=== PATIENT | male | born 1945 | race Caucasian/White ===

== ENCOUNTER → 2017-06-13 | Outpatient (CLI) | payer BC ==
[2017-06-13 07:59] LABS: ANION GAP 14 (5-19); BLOOD UREA NITROGEN 7 mg/dL (7-20); CALCIUM 9.9 mg/dL (8.4-10.2); CARBON DIOXIDE 25 mmol/L (22-30); CHLORIDE 98 mmol/L (98-107); CHOLESTEROL 160.66 mg/dL (0-200); GLUCOSE 94 mg/dL (75-110); POTASSIUM 4.4 mmol/L (3.6-5.0); SODIUM 136.6 mmol/L (137-145); TRIGLYCERIDES 109 mg/dL (<150)
[2017-06-13 08:09] LABS: DIRECT LDL 77 mg/dL (<100)
[2017-06-14 08:39] LABS: HEPATITIS C VIRUS AB <0.1 s/co ratio (0.0-0.9)
== END ==
LOC: LAB 07:23
PROVIDERS: ATTEND Family Medicine
DX: E78.5 Hyperlipidemia, unspecified (principal); I10 Essential (primary) hypertension; Z79.899 Other long term (current) drug therapy; Z12.5 Encounter for screening for malignant neoplasm of prostate; Z11.59 Encounter for screening for other viral diseases
CPT/HCPCS: 36415; 80048; 80061; 83036; 84153; 84443; 86803; 86804

== ENCOUNTER → 2017-09-10 | Day surgery (SDC) | payer BC ==
[~2017-09-10] MED LIST: CHONDR SU A NA/HYALUR INTRAOC KIT (SURGICARE) ONE; EPINEPHRINE INJ/PF 1 MG/1 ML AMPULE ONE; FENTANYL CITRATE INJ/PF 100 MCG/2 ML AMPUL ONE; KETOROLAC TROMETHAMINE 0.45% 4 DROP/0.4 ML DROPERETTE OS PRN; LIDOCAINE 1% INJ-PF (10 MG/ML) 30 ML SDV ONE; MIDAZOLAM 2 MG/2 ML INJ ONE; TOBRAMYCIN SULFATE/DEXAMETH OPH OINTMENT 3.5 GM ONE
[2017-09-10] MEDS: TROPICAMIDE 1% OPH SOLN 3 ML OS PRN ×3 (09:26→09:45)
[2017-09-10] MEDS: BESIFLOXACIN HCL 0.6% OPH SUSP 5 ML BOTTLE OS PRN ×3 (09:26→10:30)
[2017-09-10] MEDS: CYCLOPENTOLATE 0.2%/PHENYLEPHRINE 1% OPH SOLN 2 ML OS PRN ×3 (09:26→09:45)
[2017-09-10] MEDS: TETRACAINE HCL 0.5% OPH SOLN 0.6 ML DROPERETTE OS PRN ×3 (09:26→10:04)
== END ==
LOC: SC 08:39
PROVIDERS: ATTEND Ophthalmology
DX: H25.12 Age-related nuclear cataract, left eye (principal); F17.210 Nicotine dependence, cigarettes, uncomplicated; J44.9 Chronic obstructive pulmonary disease, unspecified; I10 Essential (primary) hypertension; Z79.51 Long term (current) use of inhaled steroids; Z79.1 Long term (current) use of non-steroidal anti-inflammatories (NSAID); Z79.899 Other long term (current) drug therapy; Z85.038 Personal history of other malignant neoplasm of large intestine; Z85.828 Personal history of other malignant neoplasm of skin
CPT/HCPCS: 66984; V2630; J2250; J3490 ×3; J0171; J3010; 142

== ENCOUNTER 2017-09-24 06:57 | Day surgery (SDC) | payer BC ==
[~2017-09-24 06:57] MED LIST changes: -CHONDR SU A NA/HYALUR INTRAOC KIT (SURGICARE) ONE; -EPINEPHRINE INJ/PF 1 MG/1 ML AMPULE ONE; -FENTANYL CITRATE INJ/PF 100 MCG/2 ML AMPUL ONE; +KETOROLAC TROMETHAMINE 0.45% 4 DROP/0.4 ML DROPERETTE OD PRN; -KETOROLAC TROMETHAMINE 0.45% 4 DROP/0.4 ML DROPERETTE OS PRN; -LIDOCAINE 1% INJ-PF (10 MG/ML) 30 ML SDV ONE; -MIDAZOLAM 2 MG/2 ML INJ ONE; -TOBRAMYCIN SULFATE/DEXAMETH OPH OINTMENT 3.5 GM ONE
[2017-09-24] MEDS ORDERED: EPINEPHRINE INJ/PF 1 MG/1 ML AMPULE ONE (07:13)
[2017-09-24] MEDS ORDERED: CHONDR SU A NA/HYALUR INTRAOC KIT (SURGICARE) ONE (07:13)
[2017-09-24] MEDS ORDERED: LIDOCAINE 1% INJ-PF (10 MG/ML) 30 ML SDV ONE (07:13)
[2017-09-24] MEDS: TETRACAINE HCL 0.5% OPH SOLN 0.6 ML DROPERETTE OD PRN ×3 (07:55→08:19)
[2017-09-24] MEDS: TROPICAMIDE 1% OPH SOLN 3 ML OD PRN ×3 (07:55→08:15)
[2017-09-24] MEDS: CYCLOPENTOLATE 0.2%/PHENYLEPHRINE 1% OPH SOLN 2 ML OD PRN ×3 (07:55→08:15)
[2017-09-24] MEDS: BESIFLOXACIN HCL 0.6% OPH SUSP 5 ML BOTTLE OD PRN ×4 (07:55→08:41)
[2017-09-24] MEDS ORDERED: MIDAZOLAM 2 MG/2 ML INJ ONE (07:59)
[2017-09-24] MEDS ORDERED: LIDOCAINE 1%/PHENYLEPHRINE 1.5% 1 ML VIAL ONE (08:01)
[2017-09-24] MEDS: TOBRAMYCIN SULFATE/DEXAMETH OPH OINTMENT 3.5 GM ONE ×2 (08:41)
== END 2017-09-24 09:16 | disposition home or self-care (01) ==
LOC: SC 06:57
PROVIDERS: ATTEND Ophthalmology
DX: H25.11 Age-related nuclear cataract, right eye (principal); Z98.42 Cataract extraction status, left eye; J44.9 Chronic obstructive pulmonary disease, unspecified; I10 Essential (primary) hypertension; Z85.038 Personal history of other malignant neoplasm of large intestine; Z90.49 Acquired absence of other specified parts of digestive tract; Z79.51 Long term (current) use of inhaled steroids
CPT/HCPCS: 66984; V2632; J2250; J3490 ×2; J0171; J2370; 142

== ENCOUNTER → 2019-02-25 | Outpatient (CLI) | payer BC, MEDICARE ==
[2019-02-25 13:07] LABS: ANION GAP 17 (5-19); BLOOD UREA NITROGEN 22 mg/dL (7-20); CALCIUM 10.1 mg/dL (8.4-10.2); CARBON DIOXIDE 20 mmol/L (22-30); CHLORIDE 96 mmol/L (98-107); CHOLESTEROL 167.29 mg/dL (0-200); GLUCOSE 104 mg/dL (75-110); TRIGLYCERIDES 179 mg/dL (<150)
[2019-02-25 13:18] LABS: DIRECT LDL 102 mg/dL (<100)
[2019-02-25 13:43] LABS: VLDL CHOLESTEROL 35.8 mg/dL (10-31)
== END ==
LOC: LAB 12:10
PROVIDERS: ATTEND Family Medicine
DX: E78.5 Hyperlipidemia, unspecified (principal); I10 Essential (primary) hypertension; Z12.5 Encounter for screening for malignant neoplasm of prostate; Z79.899 Other long term (current) drug therapy
CPT/HCPCS: 36415; 84443; 80048; 83036; 80061; G0103

== ENCOUNTER 2019-04-26 10:17 | Inpatient (IN) | payer MEDICARE, BC ==
--- NOTE | 2019-04-26 11:03 | ER Document Report ---
ED General - General Chief Complaint: GI Bleeding Stated Complaint: NAUSEA,VOMITING Notes: 74-year-old male with long smoking history presents with weight loss and vomit ing blood. Start vomiting blood last night with right upper quadrant abdominal pain. Constant. No diarrhea. Patient is "hermit". Sister and she had to force him to come today. He is in the middle of getting a primary care established at the [facility]. 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 Denies a history of GI bleed or liver disease. TRAVEL OUTSIDE OF THE [place] IN LAST 30 DAYS: No - Related Data Allergies/Adverse Reactions: No Known Allergies Allergy (Unverified 09/24/17 08:03) Past Medical History - Social History Smoking Status: Current Every Day Smoker Smoking Education Provided: Yes - The patient ED visit today was directly related to their abuse of tobacco. Family History: None Patient has suicidal ideation: No Patient has homicidal ideation: No - Past Medical History Cardiac Medical History: Reports: Hx Hypertension - MEDICATED/STRESS TEST LAST YEAR-WNL Denies: Hx Heart Attack Pulmonary Medical History: Denies: Hx Asthma Neurological Medical History: Denies: Hx Cerebrovascular Accident, Hx Seizures GI Medical History: Denies: Hx Hepatitis, Hx Hiatal Hernia, Hx Ulcer Infectious Medical History: Denies: Hx Hepatitis Past Surgical History: Denies: Hx Open Heart Surgery, Hx Pacemaker Review of Systems - Review of Systems Notes: REVIEW OF SYSTEMS GEN: Weakness weight loss ENT: Denies sore throat, nasal discharge, ear pain EYES: Denies blurry vision, eye pain, discharge CV: Denies chest pain, palpitations, edema RESP: Chronic cough GI: Pain and hematemesis MSK: Denies joint pain/swelling, edema, SKIN: Denies rash, skin lesions LYMPH: Denies swollen glands/lymph nodes NEURO: Denies headache, focal weakness or numbness, dizziness PSYCH: Denies depression, suicidal or homicidal ideation PHYSICAL EXAMINATION General: extremely frail and wasted thin, baggy jeans as if he is lost weight Head: PERRLA wasting. Edentulous. Atraumatic, normocephalic ENT: Mouth normal, oropharynx moist, no exudates or tonsillar enlargement Eyes: Conjunctiva normal, pupils equal, lids normal Neck: No JVD, supple, no guarding CVS: Normal rate, regular rhythm, no murmurs Resp: No resp distress, equal and normal breath sounds bilaterally GI: Old incision. Scaphoid abdomen. Right upper quadrant tenderness present. Ext: No deformities, no edema, normal range of motion in upper and lower ext Back: No CVA or midline TTP Skin: No rash, warm Lymphatic: No lymphadeopathy noted Neuro: Awake, alert. Face symmetric. GCS 15. Physical Exam - Vital signs Vitals: Resp Pulse Ox 16 97 04/26/19 10:31 04/26/19 10:31 Course - Re-evaluation Re-evalutation: 04/26/19 12:56 Presents with hematemesis. He is very thin and has had intestinal surgery before and I am concerned about cancer in bowel obstruction along with upper GI bleed. Ordered labs and type and screen. Made n.p.o. Given pain medicine. Ordered CT chest abdomen pelvis given his smoking history. Received call from radiology that patient has a high-grade small bowel obstruction with up to seven 8 mm dilated loops fluid-filled no clear transition point. I am going to order NG tube, n.p.o. and fluids. Call Dr. Mckay left message with [email or web address] tech at [phone] so that he could see and admit the patient. Awaiting results of chest CT. 04/26/19 13:31 CT chest with emphysema but no acute findings. Will be admitted to surgical list. - Vital Signs Vital signs: Temp Pulse Resp BP Pulse Ox 98.1 F 102 H 18 154/87 H 96 04/26/19 10:37 04/26/19 10:37 04/26/19 11:01 04/26/19 11:01 04/26/19 11:01 - Laboratory Result Diagrams: 04/26/19 10:26 04/26/19 10:26 Laboratory results interpreted by me: 04/26/19 04/26/19 10:26 10:26 WBC 12.1 H RDW 15.4 H Seg Neuts % (Manual) 94 H Lymphocytes % (Manual) 4 L Monocytes % (Manual) 1 L Abs Neuts (Manual) 11.4 H Carbon Dioxide 20 L BUN 23 H Glucose 168 H - Diagnostic Test Radiology reviewed: Image reviewed, Reports reviewed Discharge - Discharge Clinical Impression: Small bowel obstruction Condition: Fair Disposition: ADMITTED INPATIENT Admitting Provider: Surgicalist Unit Admitted: Surgical Floor
[2019-04-26 11:19] LABS: INTERNATIONAL RATION (INR) 1.08; PROTHROMBIN TIME 14.1 SEC (11.4-15.4)
[2019-04-26 11:21] LABS: PARTIAL THROMBOPLASTIN TIME 26.7 SEC (23.5-35.8)
[2019-04-26 11:27] LABS: HEMATOCRIT 46.2 % (37.9-51.0); HEMOGLOBIN 15.7 g/dL (13.5-17.0); MEAN CORPUSCULAR HEMOGLOBIN 32.5 pg (27.0-33.4); MEAN CORPUSCULAR VOLUME 96 fl (80-97); PLATELET COUNT 288 10^3/uL (150-450); RED BLOOD COUNT 4.84 10^6/uL (4.35-5.55); RED CELL DISTRIBUTION WIDTH 15.4 % (11.5-14.0); WHITE BLOOD COUNT 12.1 10^3/uL (4.0-10.5)
[2019-04-26 11:37] LABS: ALBUMIN 4.5 g/dL (3.5-5.0); ALKALINE PHOSPHATASE 73 U/L (38-126); ANION GAP 16 (5-19); ASPARTATE AMINO TRANSFERASE 25 U/L (17-59); BILIRUBIN,DIRECT 0.4 mg/dL (0.0-0.4); BILIRUBIN,TOTAL 0.8 mg/dL (0.2-1.3); BLOOD UREA NITROGEN 23 mg/dL (7-20); CALCIUM 10.2 mg/dL (8.4-10.2); CARBON DIOXIDE 20 mmol/L (22-30); CHLORIDE 106 mmol/L (98-107); GLUCOSE 168 mg/dL (75-110); POTASSIUM 4.3 mmol/L (3.6-5.0); TOTAL PROTEIN 7.5 g/dL (6.3-8.2)
[2019-04-26] MEDS ORDERED: FENTANYL CITRATE INJ/PF 100 MCG/2 ML AMPUL IV ONE (11:46)
[2019-04-26 11:53] LABS: ABSOLUTE LYMPHOCYTES# (MANUAL) 0.6 10^3/uL (0.5-4.7); ABSOLUTE MONOCYTES # (MANUAL) 0.1 10^3/uL (0.1-1.4); ANISOCYTOSIS SLIGHT; BASOPHILS % (MANUAL) 0 % (0-2); BURR CELLS SLIGHT; EOSINOPHILS % (MANUAL) 0 % (0-6); LYMPHOCYTES % (MANUAL) 4 % (13-45); MONOCYTES % (MANUAL) 1 % (3-13); OVALOCYTES 1+; POIKILOCYTOSIS 1+; SEGMENTED NEUTROPHILS % (MAN) 94 % (42-78); TEAR DROP CELLS SLIGHT; TOTAL CELLS COUNTED 100
[2019-04-26 11:54] LABS: PLATELET COMMENT ADEQUATE; SCHISTOCYTES SLIGHT
--- NOTE | 2019-04-26 12:54 | RADIOLOGY REPORT (SQ) ---
EXAM DESCRIPTION: CT ABD/PELVIS WITH IV ONLY COMPLETED DATE/TIME: 04/26/2019 12:32 pm REASON FOR STUDY: GI bleed COMPARISON: 10/23/2006 TECHNIQUE: CT scan of the abdomen and pelvis performed using helical scanning technique with dynamic intravenous contrast injection. No oral contrast. Images reviewed with lung, soft tissue, and bone windows. Reconstructed coronal and sagittal MPR images reviewed. Delayed images for evaluation of the urinary system also acquired. All images stored on PACS. All CT scanners at this facility use dose modulation, iterative reconstruction, and/or weight based d osing when appropriate to reduce radiation dose to as low as reasonably achievable (ALARA). [facility]: Dose Right [facility]: CareDose [facility]: Dose Right [facility]: Teradose 4D [facility]: [employer] CONTRAST TYPE AND DOSE: contrast/concentration: Isovue 350.00 mg/ml; Total Contrast Delivered: 57.0 ml; Total Saline Delivered: 65.0 ml RENAL FUNCTION: Creatinine 1.06 RADIATION DOSE: . LIMITATIONS: None. FINDINGS: LOWER CHEST: See separate report of the CT of the chest. LIVER: Normal size. No masses. No dilated ducts. SPLEEN: Normal size. No focal lesions. PANCREAS: No masses. No significant calcifications. No adjacent inflammation or peripancreatic fluid collections. Pancreatic duct not dilated. GALLBLADDER: Cholelithiasis. Decompressed gallbladder. ADRENAL GLANDS: No significant masses or asymmetry. RIGHT KIDNEY AND URETER: No solid masses. Diffuse cortical thinning. Multiple nonobstructing stones , largest in the interpolar region measuring 5 mm. No hydronephrosis or hydroureter. LEFT KIDNEY AND URETER: No solid masses. Diffuse cortical thinning. There are multiple nonobstruct ing stones, largest within the upper pole measuring 11 mm. No hydronephrosis or hydroureter. AORTA AND VESSELS: Extensive aortoiliac atherosclerosis. There is mild aneurysmal dilation of the in frarenal aorta measuring up to 3.3 cm. The there are calcifications at the bilateral renal origins w ith likely at least moderate stenosis. No high-grade celiac or SMA stenosis. RETROPERITONEUM: No retroperitoneal adenopathy, hemorrhage or masses. BOWEL AND PERITONEAL CAVITY: Postsurgical changes from subtotal colectomy. There are multiple loops of massively dilated bowel throughout the central abdomen with associated gas fluid levels and measur ing up to 6.5 cm in the pelvis. Point of transition difficult to delineate all other decompressed luis wel loops within the right and left lower abdomen and pelvis. No evidence of free intraperitoneal ga s. Small volume ascites. APPENDIX: Surgically absent. PELVIS: Markedly distended bowel loops within the pelvis with associated gas fluid levels and measuri ng up to 7.6 cm. ABDOMINAL WALL: No masses. No hernias. BONES: T10 and T12 mild compression deformities, chronicity uncertain. No other evidence of acute luis ny abnormality. No suspicious osseous lesions. OTHER: No other significant finding. IMPRESSION: 1. Postsurgical changes from the subtotal colectomy. There are multiple loops of massi vely dilated small bowel throughout the abdomen measuring up to 7.6 cm with associated gas fluid leve ls, compatible with obstructive process. Decompressed bowel loops within the right and left lower ab domen with point of transition difficult to delineate. Small volume ascites. No free intraperitonea l gas. 2. Extensive aortoiliac atherosclerosis with mild aneurysmal dilation of the infrarenal aorta measur ing up to 3.3 cm. Follow-up as below. 3. Cholelithiasis and nonobstructing nephrolithiasis. 4. Additional chronic findings as above. Findings were discussed with At 1245 hours on 04/26/2019. TECHNICAL DOCUMENTATION: JOB ID: [id number] Quality ID # [id number]: Final reports with documentation of one or more dose reduction techniques (e.g., Au tomated exposure control, adjustment of the mA and/or kV according to patient size, use of iterative reconstruction technique) 2010 [employer]- All Rights Reserved Reading location - IP/workstation name: [email or web address]
[2019-04-26] MEDS ORDERED: LIDOCAINE 2% URO-JET 5 ML KIT MM ONE (12:55)
[2019-04-26] MEDS ORDERED: RINGERS SOLUTION,LACTATED 1,000 ML IV ONE (12:55)
--- NOTE | 2019-04-26 13:00 | RADIOLOGY REPORT (SQ) ---
EXAM DESCRIPTION: CT CHEST WITH COMPLETED DATE/TIME: 04/26/2019 12:32 pm REASON FOR STUDY: weight loss, smoking COMPARISON: None. TECHNIQUE: CT scan of the chest performed using helical scanning technique with dynamic intravenous contrast injection. Images reviewed with lung, soft tissue and bone windows. Reconstructed coronal and sagittal MPR and MIP images reviewed. All images stored on PACS. All CT scanners at this facility use dose modulation, iterative reconstruction, and/or weight based d osing when appropriate to reduce radiation dose to as low as reasonably achievable (ALARA). [facility]: Dose Right [facility]: CareDose [facility]: Dose Right [facility]: Teradose 4D [facility]: [employer] CONTRAST TYPE AND DOSE: See abdomen RENAL FUNCTION: See abdomen RADIATION DOSE: CT Rad equipment meets quality standard of care and radiation dose reduction techniq ues were employed. CTDIvol: 4.5 - 4.5 mGy. DLP: 679 mGy-cm. . LIMITATIONS: None. FINDINGS: LUNGS AND PLEURA: Severe emphysema. No focal airspace disease. No pleural effusion or pn eumothorax. No discrete pulmonary mass. HILAR AND MEDIASTINAL STRUCTURES: No identified masses or abnormal nodes. HEART AND VASCULAR STRUCTURES: No aneurysm or dissection. Aortic and coronary atherosclerosis. No c entral pulmonary emboli. No pericardial effusion. HARDWARE: None in the chest. UPPER ABDOMEN: See separate report of the CT of the abdomen. THYROID AND OTHER SOFT TISSUES: Partially visualized thyroid. No soft tissue masses. Cachexia. BONES: T10 and T12 mild compression deformities, chronicity uncertain. No other evidence of acute luis ny abnormality. No suspicious osseous lesions.. OTHER: No other significant finding. IMPRESSION: 1. Severe emphysema without other evidence of acute intrathoracic process. 2. Extensive coronary atherosclerosis. 3. Please see same-day abdomen CT for findings below the diaphragm. COMMENT: AAA Size: Follow-up Recommendation 3.0-3.4 cm Every 3 years *Based upon the Society for Vascular Surgery Guidelines: J Vasc Surg. 2008;50(4 Suppl):S2-49 *For aortas of maximum diameter of 2.6-2.9 cm meeting the criteria for AAA (?1.5 x proximal normal se gment) TECHNICAL DOCUMENTATION: JOB ID: [id number] Quality ID # [id number]: Final reports with documentation of one or more dose reduction techniques (e.g., Au tomated exposure control, adjustment of the mA and/or kV according to patient size, use of iterative reconstruction technique) 2010 [employer]- All Rights Reserved Reading location - IP/workstation name: [email or web address]
[2019-04-26] MEDS ORDERED: HYDROMORPHONE HCL INJ/PF 2 MG/ML AMPULE IV ONE (15:22)
--- NOTE | 2019-04-26 15:30 | PDOC H&P ---
History of Present Illness Admission Date/PCP: 04/26/19 13:07 ALEISHA GARDNER MD Patient complains of: Abdominal pains with vomiting History of Present Illness: AMILCAR COBB is a 74 year old male post subtotal colon resection in 2005 at [facility] complaining of abdominal pains with nausea and vomiting since last night. A CT scan of the abdomen done today showed small bowel obstruction. An NG tube was inserted in ED which initially drained about 600 cc of darkish fluid with dramatic relief to the patient. Patient claims he lost a lot of weight in the past year and a half with most of the rapid weight weight loss in the past few weeks. He used to weigh about 180 pounds and now weighs 113 pounds. He is heavy smoker 1 to 1-1/2 packs a day. 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 Denies: Pacemaker Social History Smoking Status: Current Every Day Smoker Cigarettes Packs Per Day: 1 Frequency of Alcohol Use: Social Family History Family History: None Parental Family History Reviewed: Yes Children Family History Reviewed: No Sibling(s) Family History Reviewed.: Yes - Another sister had diabetes mellitus and the sister the patient now claims that this has been "cured". Medication/Allergy Home Medications: Amlodipine Besylate/Benazepril [Amlodipine-Benazepril 10-40 mg] 1 cap PO QHS 09/04/17 Aripiprazole [Abilify 2 mg Tablet] 4 mg PO QHS 09/04/17 Lorazepam 1 mg PO QIDP PRN 09/04/17 Montelukast Sodium [Singulair 10 mg Tablet] 10 mg PO DAILY 09/04/17 Sertraline HCl [Zoloft] 200 mg PO DAILY 09/04/17 Budesonide/Formoterol Fumarate [Symbicort Hfa 160-4.5 Mcg Inhaler 6 gm] 2 puff IH Q12 04/26/19 Clonidine HCl [Catapres 0.1 mg Tablet] 0.1 mg PO Q12 04/26/19 Fluticasone Propionate [Flonase Nasal Tendoy 50 Mcg/Tendoy 16 gm] 1 spray NASL Q12 04/26/19 Megestrol Acetate 40 mg PO DAILY 04/26/19 Meloxicam [Mobic] 15 mg PO DAILY 04/26/19 Allergies/Adverse Reactions: No Known Allergies Allergy (Unverified 09/24/17 08:03) Review of Systems Constitutional: PRESENT: as per HPI Ears: PRESENT: other - Decreased hearing just went to the [facility] last week primarily because of this problem Respiratory: PRESENT: other - Denies cough no chest pains Gastrointestinal: PRESENT: abdominal pain, nausea, vomiting Physical Exam Vital Signs: Temp Pulse Resp BP Pulse Ox 98.1 F 102 H 21 H 144/87 H 96 04/26/19 10:37 04/26/19 10:37 04/26/19 14:01 04/26/19 14:01 04/26/19 14:01 Intake & Output 04/25/19 04/26/19 04/27/19 06:59 06:59 06:59 Intake Total 1000 Output Total 300 Balance 700 Weight 49.895 kg General appearance: PRESENT: mild distress Head exam: PRESENT: atraumatic Eye exam: PRESENT: conjunctiva pink Ear exam: PRESENT: normal external ear exam Mouth exam: PRESENT: dry mucosa Neck exam: PRESENT: full ROM Respiratory exam: PRESENT: clear to auscultation byron Cardiovascular exam: PRESENT: RRR Pulses: PRESENT: normal radial pulses Vascular exam: PRESENT: normal capillary refill GI/Abdominal exam: PRESENT: soft - Minimal diffuse tenderness Rectal exam: PRESENT: deferred Extremities exam: PRESENT: full ROM Musculoskeletal exam: PRESENT: ambulatory Neurological exam: PRESENT: alert, oriented to person, oriented to place, oriented to time, oriented to situation Psychiatric exam: PRESENT: appropriate affect Skin exam: PRESENT: normal color, warm Results Laboratory Results: 04/26/19 10:26 04/26/19 10:26 04/26/19 04/26/19 04/26/19 10:26 10:26 11:35 WBC 12.1 H RBC 4.84 Hgb 15.7 Hct 46.2 MCV 96 MCH 32.5 MCHC 34.0 RDW 15.4 H Plt Count 288 Seg Neutrophils % Not Reportable Sodium 142.2 Potassium 4.3 Chloride 106 Carbon Dioxide 20 L Anion Gap 16 BUN 23 H Creatinine 1.06 Est GFR ( Amer) > 60 Glucose 168 H Calcium 10.2 Total Bilirubin 0.8 AST 25 Alkaline Phosphatase 73 Total Protein 7.5 Albumin 4.5 Blood Type O NEGATIVE Antibody Screen NEGATIVE Impressions: Abdomen/Pelvis CT 04/26/19 11:29 IMPRESSION: 1. Postsurgical changes from the subtotal colectomy. There are multiple loops of massively dilated small bowel throughout the abdomen measuring up to 7.6 cm with associated gas fluid levels, compatible with obstructive process. Decompressed bowel loops within the right and left lower abdomen with point of transition difficult to delineate. Small volume ascites. No free intraperitoneal gas. 2. 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 Follow-up as below. 3. Cholelithiasis and nonobstructing nephrolithiasis. 4. Additional chronic findings as above. Findings were discussed with At 1245 hours on 04/26/2019. Chest CT 04/26/19 11:29 IMPRESSION: 1. Severe emphysema without other evidence of acute intrathoracic process. 2. Extensive coronary atherosclerosis. 3. Please see same-day abdomen CT for findings below the diaphragm. Assessment & Plan - Diagnosis (1) Smoker Is this a current diagnosis for this admission?: Yes (2) Weight loss Is this a current diagnosis for this admission?: Yes (3) Small bowel obstruction Is this a current diagnosis for this admission?: Yes - Time Time Spent: 30 to 50 Minutes - Inpatient Certification Based on my medical assessment, after consideration of the patient's comorbidities, presenting symptoms, or acuity I expect that the services needed warrant INPATIENT care.: Yes Medical Necessity: Need Close Monitoring Due to Risk of Patient Decompensation, Need For IV Fluids, Risk of Complication if Not Cared For in Hospital - Plan Summary Plan Summary: 74-year-old male 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 Initial vomitus was with blood. Denies fever nor chills. Occasionally has some diarrhea. CT scan of the abdomen showed small bowel obstruction. NG tube was inserted and drained about 600 cc of dark brown fluid with dramatic relief on the patient's part. His abdominal pains appears to have subsided now with just minimal abdominal tenderness. Plans: Continue NG tube and hydration. Monitor labs For possible small bowel follow-through in a.m.
[2019-04-26] MEDS ORDERED: DEXTROSE 50%-WATER 25 GM/50 ML DISP.SYRIN IV PRN ×2 (15:32)
[2019-04-26] MEDS ORDERED: DEXTROSE 40% GEL 15 GM TUBE PO PRN ×2 (15:32)
[2019-04-26] MEDS ORDERED: GLUCAGON,HUMAN RECOMB 1 MG INJ SUBCUT PRN (15:32)
--- NOTE | 2019-04-26 16:45 | RADIOLOGY REPORT (SQ) ---
EXAM DESCRIPTION: CHEST SINGLE VIEW COMPLETED DATE/TIME: 04/26/2019 4:14 pm REASON FOR STUDY: NG Tube Placement COMPARISON: 10/24/2006 EXAM PARAMETERS: NUMBER OF VIEWS: One view. TECHNIQUE: Single frontal radiographic view of the chest acquired. RADIATION DOSE: NA LIMITATIONS: None. FINDINGS: LUNGS AND PLEURA: Emphysematous change with hyperinflation. No focal consolidation, pleur al effusion or pneumothorax. MEDIASTINUM AND HILAR STRUCTURES: No masses. Contour normal. HEART AND VASCULAR STRUCTURES: Normal heart size. Aortic atherosclerosis. BONES: No acute findings. HARDWARE: Nasoenteric tube tip just distal to the GE junction. Prior cholecystectomy. OTHER: No other significant finding. IMPRESSION: Nasoenteric tube side port overlies distal esophagus. Consider advancing 5 cm. Emphysematous change without other evidence of acute cardiopulmonary process. TECHNICAL DOCUMENTATION: JOB ID: [id number] [employer]- All Rights Reserved Reading location - IP/workstation name: [email or web address]
[2019-04-26] MEDS: MORPHINE SULFATE 10 MG/ML INJ IV PRN (21:15)
[2019-04-26] MEDS: DEXTROSE 5%-LACTATED RINGERS 1,000 ML IV PRN (21:15)
[2019-04-27] MEDS: MORPHINE SULFATE 10 MG/ML INJ IV PRN ×4 (03:25→22:55)
[2019-04-27 06:34] LABS: ABSOLUTE BASOPHILS # (AUTO) 0.1 10^3/uL (0.0-0.2); ABSOLUTE LYMPHOCYTES (AUTO) 1.7 10^3/uL (0.5-4.7); ABSOLUTE MONOCYTES (AUTO) 0.9 10^3/uL (0.1-1.4); ABSOLUTE NEUT (AUTO) 6.8 10^3/uL (1.7-8.2); EOSINOPHILS % (AUTO) 0.1 % (0-6); LYMPHOCYTES % (AUTO) 18.1 % (13-45); MEAN CORPUSCULAR HEMOGLOBIN 33.2 pg (27.0-33.4); MEAN CORPUSCULAR VOLUME 95 fl (80-97); MONOCYTES % (AUTO) 9.3 % (3-13); PLATELET COUNT 201 10^3/uL (150-450); RED BLOOD COUNT 4.01 10^6/uL (4.35-5.55); RED CELL DISTRIBUTION WIDTH 15.5 % (11.5-14.0); SEGMENTED NEUTROPHILS % (AUTO) 71.5 % (42-78); TOTAL CELLS COUNTED % (AUTO) 100 %; WHITE BLOOD COUNT 9.6 10^3/uL (4.0-10.5)
[2019-04-27 06:36] LABS: HEMOGLOBIN 13.3 g/dL (13.5-17.0)
[2019-04-27 07:02] LABS: ANION GAP 9 (5-19); BLOOD UREA NITROGEN 24 mg/dL (7-20); CALCIUM 9.3 mg/dL (8.4-10.2); CARBON DIOXIDE 28 mmol/L (22-30); CHLORIDE 105 mmol/L (98-107); GLUCOSE 117 mg/dL (75-110); POTASSIUM 3.4 mmol/L (3.6-5.0)
[2019-04-27] MEDS ORDERED: ENOXAPARIN SODIUM INJ 30 MG/0.3 ML DISP.SYRIN SUBCUT SCH ×2 (10:00)
[2019-04-27] MEDS: FAMOTIDINE INJ/PF 20 MG/2 ML SDV IV SCH (10:11)
--- NOTE | 2019-04-27 14:32 | RADIOLOGY REPORT (SQ) ---
EXAM DESCRIPTION: SMALL BOWEL SERIES COMPLETED DATE/TIME: 04/27/2019 11:36 am REASON FOR STUDY: SBO COMPARISON: CT abdomen and pelvis 04/26/2019 FLUOROSCOPY TIME: 24 seconds of fluoroscopy was used. 4 images saved to PACS. LIMITATIONS: None. PROCEDURE: Initial instructor of education image of abdomen acquired, followed by administration Gastrografin through NG tube. Serial radiographic images acquired. Fluoroscopic images recorded of the terminal ileum an d other indicated areas. All images stored on PACS. FINDINGS: MANAGER HARDWARE KUB: Air-filled dilated loops of small bowel along the midline of the abdomen. Mult iple surgical clips and sutures are seen throughout the abdomen. NG tube is in the mid to distal eso phagus above the diaphragm. STOMACH: No significant reflux. Normal distention without abnormality. SMALL-BOWEL: No evidence of small-bowel obstruction. There are dilated loops of small bowel through out the abdomen. 2 hour delayed image shows contrast within the rectum. Due to overlying loops of b owel, entero colonic anastomosis cannot be identified. OTHER: No other significant finding. IMPRESSION: NO EVIDENCE OF SMALL-BOWEL OBSTRUCTION. DILATED LOOPS OF SMALL BOWEL THROUGHOUT THE ABD OMEN COULD INDICATE PARTIAL SMALL BOWEL OBSTRUCTION MOST LIKELY POINT OF OBSTRUCTION IS AT THE ENTERO COLONIC ANASTOMOSIS WHICH WAS NOT CLEARLY IDENTIFIED ON THIS STUDY. COMMENT: Quality ID 145: Final reports for procedures using fluoroscopy that document radiation exp osure indices, or exposure time and number of fluorographic images (if radiation exposure indices are not available) TECHNICAL DOCUMENTATION: JOB ID: [id number] [employer]- All Rights Reserved Reading location - IP/workstation name: [email or web address]
[2019-04-27] MEDS ORDERED: POTASSI CL 20 MEQ/50 ML RIDER 20 MEQ/50 ML RTUPB IV ONE (14:43)
--- NOTE | 2019-04-27 15:02 | PDOC PROGRESS REPORT ---
Subjective Progress Note for:: 04/27/19 Subjective:: still has some lower abdominal pains which is slightly improved after SBFT Has just had a BM Reason For Visit: SMALL BOWEL OBSTRUCTION Physical Exam Vital Signs: Temp Pulse Resp BP Pulse Ox 97.9 F 102 H 14 142/75 H 98 04/27/19 14:14 04/26/19 10:37 04/27/19 06:01 04/27/19 06:01 04/27/19 06:01 Intake & Output 04/26/19 04/27/19 04/28/19 06:59 06:59 06:59 Intake Total 1000 1000 Output Total 300 Balance 700 1000 Weight 49.895 kg Exam: abdomen is soft ,flat with mild tenderness below Ex Lap incision suprapubic Patient pulled out NGT Results Laboratory Results: 04/27/19 06:15 04/27/19 06:15 04/27/19 04/27/19 06:15 06:15 WBC 9.6 RBC 4.01 L Hgb 13.3 L D Hct 38.0 MCV 95 MCH 33.2 MCHC 35.0 RDW 15.5 H Plt Count 201 Seg Neutrophils % 71.5 Sodium 141.6 Potassium 3.4 L Chloride 105 Carbon Dioxide 28 Anion Gap 9 BUN 24 H Creatinine 0.78 Est GFR ( Amer) > 60 Glucose 117 H Calcium 9.3 Lipase 46.9 Impressions: Chest X-Ray 04/26/19 00:00 IMPRESSION: Nasoenteric tube side port overlies distal esophagus. Consider advancing 5 cm. Emphysematous change without other evidence of acute cardiopulmonary process. Abdomen/Pelvis CT 04/26/19 11:29 IMPRESSION: 1. Postsurgical changes from the subtotal colectomy. There are multiple loops of massively dilated small bowel throughout the abdomen measuring up to 7.6 cm with associated gas fluid levels, compatible with obstructive process. Decompressed bowel loops within the right and left lower abdomen with point of transition difficult to delineate. Small volume ascites. No free intraperitoneal gas. 2. 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 Follow-up as below. 3. Cholelithiasis and nonobstructing nephrolithiasis. 4. Additional chronic findings as above. Findings were discussed with At 1245 hours on 04/26/2019. Chest CT 04/26/19 11:29 IMPRESSION: 1. Severe emphysema without other evidence of acute intrathoracic process. 2. Extensive coronary atherosclerosis. 3. Please see same-day abdomen CT for findings below the diaphragm. Small Bowel X-Ray 04/27/19 00:00 IMPRESSION: NO EVIDENCE OF SMALL-BOWEL OBSTRUCTION. DILATED LOOPS OF SMALL BOWEL THROUGHOUT THE ABDOMEN COULD INDICATE PARTIAL SMALL BOWEL OBSTRUCTION MOST LIKELY POINT OF OBSTRUCTION IS AT THE ENTERO COLONIC ANASTOMOSIS WHICH WAS NOT CLEARLY IDENTIFIED ON THIS STUDY. Assessment & Plan - Diagnosis (1) Smoker Is this a current diagnosis for this admission?: Yes (2) Weight loss Is this a current diagnosis for this admission?: Yes (3) Small bowel obstruction Is this a current diagnosis for this admission?: Yes - Time Time Spent with patient: 15-24 minutes - Inpatient Certification Medical Necessity: Need Close Monitoring Due to Risk of Patient Decompensation, Need for Pain Control, Risk of Complication if Not Cared For in Hospital - Plan Summary Plan Summary: Just had SBFT with contrast going to large bowel indicating no complete obstruction. Small bowel still dilated with possible stenosis at ileocolonic anastomosis. Plans: OK to start ice chips otherwise keep NPO today Continue hydration Re-evaluate in am.If still with pains and some abdominal distention tomorrow may need a barium enema versus colonoscopy to establish stenotic area
--- NOTE | 2019-04-27 16:30 | RADIOLOGY REPORT (SQ) ---
EXAM DESCRIPTION: CT ABD/PELVIS WITH IV ORAL COMPLETED DATE/TIME: 04/27/2019 4:11 pm REASON FOR STUDY: Acute appendicitis eval per Dr Spencer Jimenez COMPARISON: 04/26/2019. TECHNIQUE: CT scan of the abdomen and pelvis performed with intravenous and oral contrast using douglas monica scanning technique with dynamic intravenous contrast injection. Images reviewed with lung, soft t issue, and bone windows. Reconstructed coronal and sagittal MPR images reviewed. Delayed images for e valuation of the urinary system also acquired. All images stored on PACS. All CT scanners at this facility use dose modulation, iterative reconstruction, and/or weight based d osing when appropriate to reduce radiation dose to as low as reasonably achievable (ALARA). [facility]: Dose Right [facility]: CareDose [facility]: Dose Right [facility]: Teradose 4D [facility]: [employer] CONTRAST TYPE AND DOSE: contrast/concentration: Isovue 350.00 mg/ml; Total Contrast Delivered: 57.0 ml; Total Saline Delivered: 65.0 ml RENAL FUNCTION: BUN 24 creatinine 0.78. RADIATION DOSE: CT Rad equipment meets quality standard of care and radiation dose reduction techniq ues were employed. CTDIvol: 2.3 - 2.3 mGy. DLP: 249 mGy-cm. . LIMITATIONS: None. FINDINGS: LOWER CHEST: No significant findings. No nodules or infiltrates. LIVER: Normal size. No masses. No dilated ducts. SPLEEN: Normal size. No focal lesions. PANCREAS: No masses. No significant calcifications. No adjacent inflammation or peripancreatic fluid collections. Pancreatic duct not dilated. GALLBLADDER: Decompressed. Gallstones present. No inflammatory changes to suggest cholecystitis. ADRENAL GLANDS: No significant masses or asymmetry. RIGHT KIDNEY AND URETER: No solid masses. Nonobstructing calculi. No hydronephrosis or hydrourete r. LEFT KIDNEY AND URETER: No solid masses. Nonobstructing calculi. No hydronephrosis or hydroureter . AORTA AND VESSELS: No aneurysm. No dissection. Renal arteries, SMA, celiac without stenosis. RETROPERITONEUM: No retroperitoneal adenopathy, hemorrhage or masses. BOWEL AND PERITONEAL CAVITY: Surgical changes of subtotal colectomy with anastomosis in the sigmoid. Diffusely dilated small bowel, particularly in the distal small bowel. Contrast present throughout the small bowel and extending into the sigmoid and rectum. No visualized masses. No free fluid. No inflammatory changes or thickening of bowel wall. APPENDIX: Surgically absent. PELVIS: No significant masses. Normal bladder. No free fluid. ABDOMINAL WALL: No masses. No hernias. BONES: No significant or acute findings. OTHER: No other significant finding. IMPRESSION: 1. PREVIOUS SUBTOTAL COLECTOMY WITH ANASTOMOSIS IN THE SIGMOID. DIFFUSELY DILATED SMALL BOWEL, PARTI CULARLY THE DISTAL SMALL BOWEL. HOWEVER, NO EVIDENCE OF MECHANICAL OBSTRUCTION. CONTRAST IS PRESENT THROUGHOUT THE BOWEL AND ALSO EXTENDING INTO THE SIGMOID AND RECTUM. 2. NONOBSTRUCTING RENAL CALCULI. 3. GALLSTONES. 4. NO OTHER SIGNIFICANT OR ACUTE FINDINGS IN THE ABDOMEN OR PELVIS. TECHNICAL DOCUMENTATION: JOB ID: [id number] Quality ID # [id number]: Final reports with documentation of one or more dose reduction techniques (e.g., Au tomated exposure control, adjustment of the mA and/or kV according to patient size, use of iterative reconstruction technique) 2010 [email or web address]- All Rights Reserved Reading location - IP/workstation name: [email or web address]
[2019-04-27] MEDS ORDERED: DEXTROSE 40% GEL 15 GM TUBE PO PRN ×2 (19:20)
[2019-04-27] MEDS ORDERED: GLUCAGON,HUMAN RECOMB 1 MG INJ SUBCUT PRN (19:20)
[2019-04-27] MEDS ORDERED: DEXTROSE 50%-WATER 25 GM/50 ML DISP.SYRIN IV PRN ×2 (19:20)
[2019-04-27] MEDS ORDERED: MORPHINE SULFATE 10 MG/ML INJ IV ONE (19:30)
[2019-04-27] MEDS: DEXTROSE 5%-LACTATED RINGERS 1,000 ML IV PRN (22:56)
[2019-04-28 07:31] LABS: ABSOLUTE LYMPHOCYTES (AUTO) 1.3 10^3/uL (0.5-4.7); ABSOLUTE MONOCYTES (AUTO) 0.6 10^3/uL (0.1-1.4); BASOPHILS % (AUTO) 0.7 % (0-2); EOSINOPHILS % (AUTO) 0.6 % (0-6); HEMATOCRIT 39.5 % (37.9-51.0); HEMOGLOBIN 13.5 g/dL (13.5-17.0); MEAN CORPUSCULAR HEMOGLOBIN 32.8 pg (27.0-33.4); MEAN CORPUSCULAR HGB CONC 34.3 g/dL (32.0-36.0); MEAN CORPUSCULAR VOLUME 96 fl (80-97); MONOCYTES % (AUTO) 8.2 % (3-13); PLATELET COUNT 200 10^3/uL (150-450); RED BLOOD COUNT 4.13 10^6/uL (4.35-5.55); RED CELL DISTRIBUTION WIDTH 15.3 % (11.5-14.0); SEGMENTED NEUTROPHILS % (AUTO) 71.5 % (42-78); TOTAL CELLS COUNTED % (AUTO) 100 %
[2019-04-28 07:52] LABS: BLOOD UREA NITROGEN 11 mg/dL (7-20); CALCIUM 9.1 mg/dL (8.4-10.2); GLUCOSE 131 mg/dL (75-110)
[2019-04-28 07:57] LABS: ANION GAP 5 (5-19); CARBON DIOXIDE 30 mmol/L (22-30); CHLORIDE 104 mmol/L (98-107)
[2019-04-28 08:07] LABS: POTASSIUM 2.8 mmol/L (3.6-5.0)
--- NOTE | 2019-04-28 08:15 | PDOC PROGRESS REPORT ---
Subjective Progress Note for:: 04/28/19 Subjective:: Denies any abdominal pain since last night. Also had bowel movement with flatus. Reason For Visit: SMALL BOWEL OBSTRUCTION Physical Exam Vital Signs: Temp Pulse Resp BP Pulse Ox 98.1 F 82 16 128/79 H 93 04/28/19 07:38 04/28/19 07:38 04/28/19 07:38 04/28/19 07:38 04/28/19 07:38 Intake & Output 04/27/19 04/28/19 04/29/19 06:59 06:59 06:59 Intake Total 1000 1390 Output Total 300 1 Balance 700 1389 Weight 49.895 kg 107 kg Exam: Abdomen is flat and nontender Results Laboratory Results: 04/28/19 07:17 04/28/19 07:17 04/28/19 04/28/19 07:17 07:17 WBC 7.0 RBC 4.13 L Hgb 13.5 Hct 39.5 MCV 96 MCH 32.8 MCHC 34.3 RDW 15.3 H Plt Count 200 Seg Neutrophils % 71.5 Sodium 139.3 Potassium 2.8 L* Chloride 104 Carbon Dioxide 30 Anion Gap 5 BUN 11 Creatinine 0.62 Est GFR ( Amer) > 60 Glucose 131 H Calcium 9.1 Impressions: Chest X-Ray 04/26/19 00:00 IMPRESSION: Nasoenteric tube side port overlies distal esophagus. Consider advancing 5 cm. Emphysematous change without other evidence of acute cardiopulmonary process. Chest CT 04/26/19 11:29 IMPRESSION: 1. Severe emphysema without other evidence of acute intrathoracic process. 2. Extensive coronary atherosclerosis. 3. Please see same-day abdomen CT for findings below the diaphragm. Abdomen/Pelvis CT 04/27/19 00:00 IMPRESSION: 1. PREVIOUS SUBTOTAL COLECTOMY WITH ANASTOMOSIS IN THE SIGMOID. DIFFUSELY DILATED SMALL BOWEL, PARTICULARLY THE DISTAL SMALL BOWEL. HOWEVER, NO EVIDENCE OF MECHANICAL OBSTRUCTION. CONTRAST IS PRESENT THROUGHOUT THE BOWEL AND ALSO EXTENDING INTO THE SIGMOID AND RECTUM. 2. NONOBSTRUCTING RENAL CALCULI. 3. GALLSTONES. 4. NO OTHER SIGNIFICANT OR ACUTE FINDINGS IN THE ABDOMEN OR PELVIS. Small Bowel X-Ray 04/27/19 00:00 IMPRESSION: NO EVIDENCE OF SMALL-BOWEL OBSTRUCTION. DILATED LOOPS OF SMALL BOWEL THROUGHOUT THE ABDOMEN COULD INDICATE PARTIAL SMALL BOWEL OBSTRUCTION MOST LIKELY POINT OF OBSTRUCTION IS AT THE ENTERO COLONIC ANASTOMOSIS WHICH WAS NOT CLEARLY IDENTIFIED ON THIS STUDY. Assessment & Plan - Diagnosis (1) Smoker Is this a current diagnosis for this admission?: Yes (2) Weight loss Is this a current diagnosis for this admission?: Yes (3) Small bowel obstruction Is this a current diagnosis for this admission?: Yes - Time Time Spent with patient: 15-24 minutes - Inpatient Certification Medical Necessity: Need For IV Fluids, Risk of Complication if Not Cared For in Hospital - Plan Summary Plan Summary: The small bowel obstruction appears to have been resolved. Plans: Start clear liquid diet today and increase it in the next 24 hours. Patient will need colonoscopy since the last time he had it was about 19 years ago just before his subtotal colectomy. This can be done this admission or as an outpatient
[2019-04-28] MEDS: POTASSI CL 20 MEQ/50 ML RIDER 20 MEQ/50 ML RTUPB IV SCH ×2 (09:00→11:08)
[2019-04-28] MEDS: FAMOTIDINE INJ/PF 20 MG/2 ML SDV IV SCH (09:38)
--- NOTE | 2019-04-28 10:26 | RADIOLOGY REPORT (SQ) ---
EXAM DESCRIPTION: ABDOMEN 2 VIEWS COMPLETED DATE/TIME: 04/28/2019 8:29 am REASON FOR STUDY: flat/upright for obstruction COMPARISON: CT abdomen pelvis 04/27/2019 NUMBER OF VIEWS: Two views. TECHNIQUE: Supine and erect/decubitus radiographic images of the abdomen acquired. LIMITATIONS: None. FINDINGS: FREE AIR: No evidence of free air. LUNG BASES: Clear. BOWEL GAS PATTERN: Markedly distended loops of small bowel and colon with progression of enteric cont rast to the rectum, consistent with chronic ileus, as seen on previous CT. CALCIFICATIONS: Large calculus at the superior pole left kidney is unchanged. Several small calcific ations projecting over the right kidney, stable. SOFT TISSUES: No gross mass or suggestion of organomegaly. HARDWARE: None in the abdomen. BONES: No acute fracture. No worrisome bone lesions. OTHER: No other significant finding. IMPRESSION: Markedly distended gas-filled loops of small bowel and colon without definitive evidence of obstruction, similar in appearance to previous CT. TECHNICAL DOCUMENTATION: JOB ID: [id number] [employer]- All Rights Reserved Reading location - IP/workstation name: [email or web address]
[2019-04-28] MEDS: MORPHINE SULFATE 10 MG/ML INJ IV PRN ×2 (11:09→22:49)
[2019-04-28] MEDS ORDERED: MAGNESIUM SULFATE INJ 8 MEQ/2 ML IV ONE (11:59)
[2019-04-28] MEDS: MAGNESIUM SULFATE 1 GM/D5W 100 ML IV SCH ×2 (13:40→15:14)
[2019-04-28] MEDS: DEXTROSE 5%-LACTATED RINGERS 1,000 ML IV PRN (16:57)
--- NOTE | 2019-04-28 17:55 | Progress Note ---
Provider Note Provider Note: Discussed options at length with the patient and his family. After weighing the risks and benefits, the patient has requested colonoscopy be performed as an inpatient. I believe this is the next, most prudent step to rule out colon cancer or anastomotic stricture. Today, the patient has no complaints. He is passing flatus and having bowel movements. He is asking for liquids to drink. I will order a bowel prep, and plan for colonoscopy tomorrow.
[2019-04-28] MEDS ORDERED: POLYETHYLENE GLYCOL 3350 POWDER 17 GM/1 PACKET PO ONE (19:00)
[2019-04-28] MEDS ORDERED: SERTRALINE HCL 50 MG TABLET PO ONE (23:45)
[2019-04-29] MEDS: LORAZEPAM 1 MG TABLET PO PRN ×2 (00:03→21:22)
[2019-04-29] MEDS: POTASSI CL 20 MEQ/50 ML RIDER 20 MEQ/50 ML RTUPB IV SCH ×2 (00:16→02:55)
[2019-04-29 05:22] LABS: ANION GAP 7 (5-19); BLOOD UREA NITROGEN 4 mg/dL (7-20); CALCIUM 9.1 mg/dL (8.4-10.2); CARBON DIOXIDE 27 mmol/L (22-30); CHLORIDE 103 mmol/L (98-107); GLUCOSE 96 mg/dL (75-110); POTASSIUM 3.4 mmol/L (3.6-5.0)
[2019-04-29] MEDS ORDERED: ONDANSETRON HCL INJ/PF 4 MG/2 ML SDV ONE (07:35)
[2019-04-29] MEDS ORDERED: DIPHENHYDRAMINE HCL 50 MG/ML VIAL ONE (07:35)
[2019-04-29] MEDS ORDERED: NALOXONE HCL INJ/PF 0.4 MG/1 ML SDV ONE (07:36)
[2019-04-29] MEDS ORDERED: EPINEPHRINE INJ 1 MG/10 ML DISP.SYRIN ONE (07:36)
[2019-04-29] MEDS ORDERED: GLUCAGON,HUMAN RECOMB 1 MG INJ ONE (07:36)
[2019-04-29] MEDS ORDERED: FLUMAZENIL INJ 0.5 MG/5 ML VIAL ONE (07:36)
[2019-04-29] MEDS: FENTANYL CITRATE INJ/PF 100 MCG/2 ML AMPUL ONE ×2 (08:17→08:25)
[2019-04-29] MEDS: MIDAZOLAM 2 MG/2 ML INJ ONE ×3 (08:17→08:25)
--- NOTE | 2019-04-29 09:09 | Operative Report ---
Operative Report DATE OF SURGERY: 04/29/19 PREOPERATIVE DIAGNOSIS: Partial small bowel obstruction; history of colon resec tion POSTOPERATIVE DIAGNOSIS: Same with. 1. Subtotal colectomy with intact ileo- colonic anastomosis. 2. Internal/external hemorrhoids, collapsed OPERATION: Colonoscopy to ileocolonic anastomosis, approximately 55 cm from anal verge SURGEON: JOHN VIDES ANESTHESIA: Moderate Sedation TISSUE REMOVED OR ALTERED: None COMPLICATIONS: None ESTIMATED BLOOD LOSS: None INTRAOPERATIVE FINDINGS: See below PROCEDURE: The patient was taken from the 4 floor to the endoscopy suite on the fifth floor where he was placed in the semirecumbent left lateral decubitus position. Monitoring devices attached. Appropriate level of sedation induced. Surgical plan and surgical timeout were conducted. Rectal exam was performed. Patient was very sensitive to the rectal exam. There was no visible or palpable anorectal pathology all other than small collapsed external skin tags and small internal collapsed hemorrhoids. The flexible adult colonoscope was advanced up through the anal rectal canal, up the left colon. At approximately 55 cm from the anal verge was the ileocolonic anastomosis. This was a [id number], functional end-to-end anastomosis that was widely patent. We advance the colonoscope up the ileum for approximately 30 cm, and other than residual pain bowel prep, there was no evidence of pathology. The scope was brought back through the wide open anastomosis, checking the mucosa carefully which appeared completely normal. The scope was brought back through the rectosigmoid colon, and anus. The scope was retroflexed in the anal canal. Again the internal hemorrhoids appreciated. Photos taken. The scope was withdrawn to the patient's anus. Tolerated the procedure well. Impression: No evidence of mechanical ileocolonic, or colonic obstruction. Recommendations: 1. Start patient on clear liquids as tolerated 2. The above discussed with the nursing staff and Dr. Mckay
[2019-04-29] MEDS: SERTRALINE HCL 50 MG TABLET PO SCH (10:25)
[2019-04-29] MEDS: FAMOTIDINE INJ/PF 20 MG/2 ML SDV IV SCH (10:25)
--- NOTE | 2019-04-29 10:48 | PDOC PROGRESS REPORT ---
Subjective Progress Note for:: 04/29/19 Subjective:: Denies any pains. No nausea or vomiting Reason For Visit: SMALL BOWEL OBSTRUCTION Physical Exam Vital Signs: Temp Pulse Resp BP Pulse Ox 97.8 F 67 16 128/76 H 97 04/29/19 09:35 04/29/19 09:35 04/29/19 09:35 04/29/19 09:35 04/29/19 09:35 Intake & Output 04/28/19 04/29/19 04/30/19 06:59 06:59 06:59 Intake Total 1390 3104 550 Output Total 1 Balance 1389 3104 550 Weight 107 kg 110 kg Exam: Colonoscopy done by Dr. Jones this morning and showed no obstruction or lesion along the area of colic anastomosis. Results Laboratory Results: 04/28/19 07:17 04/29/19 04:29 04/28/19 04/29/19 14:20 04:29 Sodium 136.5 L Potassium 3.3 L 3.4 L Chloride 103 Carbon Dioxide 27 Anion Gap 7 BUN 4 L Creatinine 0.65 Est GFR ( Amer) > 60 Glucose 96 Calcium 9.1 Magnesium 1.6 Impressions: Chest X-Ray 04/26/19 00:00 IMPRESSION: Nasoenteric tube side port overlies distal esophagus. Consider advancing 5 cm. Emphysematous change without other evidence of acute cardiopulmonary process. Chest CT 04/26/19 11:29 IMPRESSION: 1. Severe emphysema without other evidence of acute intrathoracic process. 2. Extensive coronary atherosclerosis. 3. Please see same-day abdomen CT for findings below the diaphragm. Abdomen/Pelvis CT 04/27/19 00:00 IMPRESSION: 1. PREVIOUS SUBTOTAL COLECTOMY WITH ANASTOMOSIS IN THE SIGMOID. DIFFUSELY DILATED SMALL BOWEL, PARTICULARLY THE DISTAL SMALL BOWEL. HOWEVER, NO EVIDENCE OF MECHANICAL OBSTRUCTION. CONTRAST IS PRESENT THROUGHOUT THE BOWEL AND ALSO EXTENDING INTO THE SIGMOID AND RECTUM. 2. NONOBSTRUCTING RENAL CALCULI. 3. GALLSTONES. 4. NO OTHER SIGNIFICANT OR ACUTE FINDINGS IN THE ABDOMEN OR PELVIS. Small Bowel X-Ray 04/27/19 00:00 IMPRESSION: NO EVIDENCE OF SMALL-BOWEL OBSTRUCTION. DILATED LOOPS OF SMALL BOWEL THROUGHOUT THE ABDOMEN COULD INDICATE PARTIAL SMALL BOWEL OBSTRUCTION MOST LIKELY POINT OF OBSTRUCTION IS AT THE ENTERO COLONIC ANASTOMOSIS WHICH WAS NOT CLEARLY IDENTIFIED ON THIS STUDY. Abdomen X-Ray 04/28/19 00:00 IMPRESSION: Markedly distended gas-filled loops of small bowel and colon without definitive evidence of obstruction, similar in appearance to previous CT. Assessment & Plan - Diagnosis (1) Smoker Is this a current diagnosis for this admission?: Yes (2) Weight loss Is this a current diagnosis for this admission?: Yes (3) Small bowel obstruction Is this a current diagnosis for this admission?: Yes - Time Time Spent with patient: 15-24 minutes - Inpatient Certification Medical Necessity: Need For IV Fluids, Risk of Complication if Not Cared For in Hospital - Plan Summary Plan Summary: 74-year-old male who is partial bowel obstruction appears to have been resolved and no evidence of obstruction of the ileocolic anastomosis on colonoscopy done today by Dr. Jones. Plans: Start clear liquids and increase to soft diet as tolerated. Anticipate discharge tomorrow when tolerating soft diet.
[2019-04-29] MEDS ORDERED: LORAZEPAM 1 MG TABLET PO PRN (13:59)
[2019-04-29] MEDS: NICOTINE 21 MG/24 HR PATCH.TD24 TD SCH ×2 (15:00→15:06)
[2019-04-29] MEDS: CLONIDINE HCL 0.1 MG TABLET PO SCH (21:23)
[2019-04-29] MEDS: FLUTICASONE NASAL SPRAY 50 MCG/SPRY 120 SPRAY/16 GM NASL SCH (21:23)
[2019-04-29] MEDS: MORPHINE SULFATE 10 MG/ML INJ IV PRN (21:32)
[2019-04-29] MEDS ORDERED: AMLODIPINE BESYLATE 10 MG TABLET PO SCH (22:00)
[2019-04-29] MEDS ORDERED: ARIPIPRAZOLE 2 MG TABLET PO SCH (22:00)
[2019-04-29] MEDS ORDERED: (PENDING PHARMACY ID) (Amlodipine Besylate/Benazepril [Amlodipine-Benazepril 10-40 Mg] 1 C PO SCH (22:00)
[2019-04-29] MEDS ORDERED: BENAZEPRIL HCL 20 MG TABLET PO SCH (22:00)
[2019-04-30] MEDS: SERTRALINE HCL 50 MG TABLET PO SCH (09:17)
[2019-04-30] MEDS: NICOTINE 21 MG/24 HR PATCH.TD24 TD SCH (09:18)
[2019-04-30] MEDS: FLUTICASONE NASAL SPRAY 50 MCG/SPRY 120 SPRAY/16 GM NASL SCH (09:18)
[2019-04-30] MEDS: CLONIDINE HCL 0.1 MG TABLET PO SCH (09:19)
[2019-04-30] MEDS: FAMOTIDINE INJ/PF 20 MG/2 ML SDV IV SCH (09:19)
[2019-04-30] MEDS ORDERED: (PENDING PHARMACY ID) (Megestrol Acetate [Megestrol Acetate] 40 MG) PO SCH (10:00)
[2019-04-30] MEDS ORDERED: MEGESTROL ACETATE 20 MG TABLET PO SCH (10:00)
[2019-04-30] MEDS ORDERED: MELOXICAM 15 MG TABLET PO SCH (10:00)
[2019-04-30] MEDS ORDERED: FLUTICASONE/VILANTEROL 200-25 MCG/DOSE IH SCH (10:00)
[2019-04-30] MEDS ORDERED: MONTELUKAST SODIUM 10 MG TABLET PO SCH (10:00)
[2019-04-30 11:10] VITALS: BP 128/76
--- NOTE | 2019-06-03 13:12 | Discharge Summary ---
Discharge Summary (SDC) - Discharge Final Diagnosis: partial small bowel obstruction post subtotal colectomy Date of Surgery: 04/29/19 Discharge Date: 04/29/19 Condition: Fair Forms: Discharge POC-Adult Referrals: [facility] [Provider Group] - 05/10/19 8:00 am Discharge Diet: Regular Discharge Activity: Activity As Tolerated, Balance Activity w/Rest Home Care Assistance: None Needed Report the Following to Your Physician Immediately: Shortness of Breath, Increase in Pain, Fever over 101 Degrees, Increased Soreness, IV Site Infection Signs
--- NOTE | 2019-06-03 14:12 | PDOC DISCHARGE SUMMARY ---
General - Admit/Disc Date/PCP Admission Date/Primary Care Provider: 04/26/19 13:07 ALEISHA GARDNER MD Discharge Date: 04/29/19 - Discharge Diagnosis Final Diagnosis: partial small bowel obstructiopost subtotal colectomy - Additional Information Resuscitation Status: Full Code Discharge Diet: Regular Discharge Activity: Activity As Tolerated, Balance Activity w/Rest Referrals: [facility] [Provider Group] - 05/10/19 8:00 am Home Medications: Amlodipine Besylate/Benazepril [Amlodipine-Benazepril 10-40 mg] 1 cap PO QHS 09/04/17 Aripiprazole [Abilify 2 mg Tablet] 4 mg PO QHS 09/04/17 Lorazepam 1 mg PO QIDP PRN 09/04/17 Montelukast Sodium [Singulair 10 mg Tablet] 10 mg PO DAILY 09/04/17 Sertraline HCl [Zoloft] 200 mg PO DAILY 09/04/17 Budesonide/Formoterol Fumarate [Symbicort Hfa 160-4.5 Mcg Inhaler 6 gm] 2 puff IH Q12 04/26/19 Clonidine HCl [Catapres 0.1 mg Tablet] 0.1 mg PO Q12 04/26/19 Fluticasone Propionate [Flonase Nasal [employer] 50 Mcg/[employer] 16 gm] 1 spray NASL Q12 04/26/19 Megestrol Acetate 40 mg PO DAILY 04/26/19 Meloxicam [Mobic] 15 mg PO DAILY 04/26/19 History of Present Illiness History of Present Illness: AMILCAR COBB is a 74 year old male post subtotal colon resection in 2005 at [facility] complaining of abdominal pains with nausea and vomiting since last night. A CT scan of the abdomen done today showed small bowel obstruction. An NG tube was inserted in ED which initially drained about 600 cc of darkish fluid with dramatic relief to the patient. Patient claims he lost a lot of weight in the past year and a half with most of the rapid weight weight loss in the past few weeks. He used to weigh about 180 pounds and now weighs 113 pounds. He is heavy smoker 1 to 1-1/2 packs a day. His last colonoscopy was during his surgery in 2005 Hospital Course Hospital Course: admitted for SBO on CT scan 04/26/19 NGT inserted with relief and SBFT showed obstruction resolved. Underwent colonoscopy by Dr Jones on 04/29/19. No obstruction noted Had collpsed internal hemrrhoids. Tolerated regular diet and discharge 04/29/19 Physical Exam Vital Signs: Temp Pulse Resp BP Pulse Ox 98.5 F 78 18 128/76 H 92 04/30/19 11:06 04/30/19 11:06 04/30/19 11:06 04/30/19 11:06 04/30/19 11:06 Results Laboratory Results: WBC 7.0 10^3/uL (4.0-10.5) 04/28/19 07:17 RBC 4.13 10^6/uL (4.35-5.55) L 04/28/19 07:17 Hgb 13.5 g/dL (13.5-17.0) 04/28/19 07:17 Hct 39.5 % (37.9-51.0) 04/28/19 07:17 MCV 96 fl (80-97) 04/28/19 07:17 MCH 32.8 pg (27.0-33.4) 04/28/19 07:17 MCHC 34.3 g/dL (32.0-36.0) 04/28/19 07:17 RDW 15.3 % (11.5-14.0) H 04/28/19 07:17 Plt Count 200 10^3/uL (150-450) 04/28/19 07:17 Lymph % (Auto) 19.0 % (13-45) 04/28/19 07:17 [place] % (Auto) 8.2 % (3-13) 04/28/19 07:17 Eos % (Auto) 0.6 % (0-6) 04/28/19 07:17 Baso % (Auto) 0.7 % (0-2) 04/28/19 07:17 Absolute Neuts (auto) 5.0 10^3/uL (1.7-8.2) 04/28/19 07:17 Absolute Lymphs (auto) 1.3 10^3/uL (0.5-4.7) 04/28/19 07:17 Absolute Monos (auto) 0.6 10^3/uL (0.1-1.4) 04/28/19 07:17 Absolute Eos (auto) 0.0 10^3/uL (0.0-0.6) 04/28/19 07:17 Absolute Basos (auto) 0.0 10^3/uL (0.0-0.2) 04/28/19 07:17 Total Counted 100 04/26/19 10:26 Seg Neutrophils % 71.5 % (42-78) 04/28/19 07:17 Seg Neuts % (Manual) 94 % (42-78) H 04/26/19 10:26 Lymphocytes % (Manual) 4 % (13-45) L 04/26/19 10:26 Atypical Lymphs % 1 % (0) 04/26/19 10:26 Monocytes % (Manual) 1 % (3-13) L 04/26/19 10:26 Eosinophils % (Manual) 0 % (0-6) 04/26/19 10:26 Basophils % (Manual) 0 % (0-2) 04/26/19 10:26 Abs Neuts (Manual) 11.4 10^3/uL (1.7-8.2) H 04/26/19 10:26 Abs Lymphs (Manual) 0.6 10^3/uL (0.5-4.7) 04/26/19 10:26 Abs Monocytes (Manual) 0.1 10^3/uL (0.1-1.4) 04/26/19 10:26 Absolute Eos (Manual) 0.0 10^3/uL (0.0-0.6) 04/26/19 10:26 Abs Basophils (Manual) 0.0 10^3/uL (0.0-0.2) 04/26/19 10:26 Platelet Comment ADEQUATE 04/26/19 10:26 Poikilocytosis 1+ 04/26/19 10:26 Anisocytosis SLIGHT 04/26/19 10:26 Tear Drop Cells SLIGHT 04/26/19 10:26 Ovalocytes 1+ 04/26/19 10:26 [place] Cells SLIGHT 04/26/19 10:26 Schistocytes SLIGHT 04/26/19 10:26 PT 14.1 SEC (11.4-15.4) 04/26/19 10:26 INR 1.08 04/26/19 10:26 APTT 26.7 SEC (23.5-35.8) 04/26/19 10:26 Sodium 136.5 mmol/L (137-145) L 04/29/19 04:29 Potassium 3.4 mmol/L (3.6-5.0) L 04/29/19 04:29 Chloride 103 mmol/L (98-107) 04/29/19 04:29 Carbon Dioxide 27 mmol/L (22-30) 04/29/19 04:29 Anion Gap 7 (5-19) 04/29/19 04:29 BUN 4 mg/dL (7-20) L 04/29/19 04:29 Creatinine 0.65 mg/dL (0.52-1.25) 04/29/19 04:29 Est GFR ( Amer) > 60 (>60) 04/29/19 04:29 Est GFR (MDRD) Non-Af > 60 (>60) 04/29/19 04:29 Glucose 96 mg/dL (75-110) 04/29/19 04:29 Calcium 9.1 mg/dL (8.4-10.2) 04/29/19 04:29 Magnesium 1.6 mg/dL (1.6-2.3) 04/29/19 04:29 Total Bilirubin 0.8 mg/dL (0.2-1.3) 04/26/19 10:26 Direct Bilirubin 0.4 mg/dL (0.0-0.4) 04/26/19 10:26 Neonat Total Bilirubin Not Reportable 04/26/19 10:26 Neonat Direct Bilirubin Not Reportable 04/26/19 10:26 Neonat Indirect Bili Not Reportable 04/26/19 10:26 AST 25 U/L (17-59) 04/26/19 10:26 ALT 18 U/L (<50) 04/26/19 10:26 Alkaline Phosphatase 73 U/L (38-126) 04/26/19 10:26 Total Protein 7.5 g/dL (6.3-8.2) 04/26/19 10:26 Albumin 4.5 g/dL (3.5-5.0) 04/26/19 10:26 Lipase 46.9 U/L (23-300) 04/27/19 06:15 Blood Type O NEGATIVE 04/26/19 11:35 Antibody Screen NEGATIVE 04/26/19 11:35 Impressions: Chest X-Ray 04/26/19 00:00 IMPRESSION: Nasoenteric tube side port overlies distal esophagus. Consider advancing 5 cm. Emphysematous change without other evidence of acute cardiopulmonary process. Abdomen/Pelvis CT 04/26/19 11:29 IMPRESSION: 1. Postsurgical changes from the subtotal colectomy. There are multiple loops of massively dilated small bowel throughout the abdomen measuring up to 7.6 cm with associated gas fluid levels, compatible with obstructive process. Decompressed bowel loops within the right and left lower abdomen with point of transition difficult to delineate. Small volume ascites. No free intraperitoneal gas. 2. 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 Follow-up as below. 3. Cholelithiasis and nonobstructing nephrolithiasis. 4. Additional chronic findings as above. Findings were discussed with At 1245 hours on 04/26/2019. Chest CT 04/26/19 11:29 IMPRESSION: 1. Severe emphysema without other evidence of acute intrathoracic process. 2. Extensive coronary atherosclerosis. 3. Please see same-day abdomen CT for findings below the diaphragm. Abdomen/Pelvis CT 04/27/19 00:00 IMPRESSION: 1. PREVIOUS SUBTOTAL COLECTOMY WITH ANASTOMOSIS IN THE SIGMOID. DIFFUSELY DILATED SMALL BOWEL, PARTICULARLY THE DISTAL SMALL BOWEL. HOWEVER, NO EVIDENCE OF MECHANICAL OBSTRUCTION. CONTRAST IS PRESENT THROUGHOUT THE BOWEL AND ALSO EXTENDING INTO THE SIGMOID AND RECTUM. 2. NONOBSTRUCTING RENAL CALCULI. 3. GALLSTONES. 4. NO OTHER SIGNIFICANT OR ACUTE FINDINGS IN THE ABDOMEN OR PELVIS. Small Bowel X-Ray 04/27/19 00:00 IMPRESSION: NO EVIDENCE OF SMALL-BOWEL OBSTRUCTION. DILATED LOOPS OF SMALL BOWEL THROUGHOUT THE ABDOMEN COULD INDICATE PARTIAL SMALL BOWEL OBSTRUCTION MOST LIKELY POINT OF OBSTRUCTION IS AT THE ENTERO COLONIC ANASTOMOSIS WHICH WAS NOT CLEARLY IDENTIFIED ON THIS STUDY. Abdomen X-Ray 04/28/19 00:00 IMPRESSION: Markedly distended gas-filled loops of small bowel and colon without definitive evidence of obstruction, similar in appearance to previous CT.
== END 2019-04-30 11:44 | disposition home or self-care (01) | DRG 389 ==
LOC: ER 10:17 → EH 13:07 → 4W 04-27 14:33
PROVIDERS: ADMIT Surgery; ATTEND Surgery
PROC: 0DJD8ZZ Inspection of Lower Intestinal Tract, Via Natural or Artificial Opening Endoscopic (ICD-10-PCS; principal; 2019-04-29 08:00)
DX: K56.600 Partial intestinal obstruction, unspecified as to cause (principal); Z68.1 Body mass index [BMI] 19.9 or less, adult; K64.8 Other hemorrhoids; R63.4 Abnormal weight loss; K64.4 Residual hemorrhoidal skin tags; F17.210 Nicotine dependence, cigarettes, uncomplicated; I10 Essential (primary) hypertension; Z90.49 Acquired absence of other specified parts of digestive tract
CPT/HCPCS: 36415; 45378; 71045; 71260; 74019; 74177; 74250; 80048; 80076; 83690; 83735; 84132; 85025; 85610; 85730; 86850; 86900; 86901; 96374; 99285; J0171; J1170; J1200; J1610; J2250; J2270; J2310; J2405; J3010; J3475; J3480; J3490; J7120; J7121; S0028

== ENCOUNTER → 2019-06-23 | Outpatient (CLI) | payer OTHER ==
--- NOTE | 2019-06-23 13:00 | RADIOLOGY REPORT (SQ) ---
EXAM DESCRIPTION: CT LUNG CANCER SCREENING COMPLETED DATE/TIME: 06/23/2019 10:08 am REASON FOR STUDY: Z87.891 PERSONAL HISTORY OF NICOTINE DEPENDENCE Z87.891 PERSONAL HISTORY OF NICOT INE DEPENDENCE Has the patient had a Chest CT scan within the past year? Y Was the patient offered tobacco cessation counseling? Y Was the patient engaged in shared decision making for this test? Y Does the patient have signs or symptoms of Lung Cancer? N Is the patient a smoker? N How many pack years? 60 How many years since quitting smoking? 0.3 Patients age: 74 COMPARISON: c CT of the chest with contrast from 04/26/2019 TECHNIQUE: Low Dose CT scan performed of the chest without intravenous contrast for purposes of scre ening for lung cancer. Images reviewed with lung, soft tissue and bone windows. Reconstructed coron al and sagittal MPR images reviewed. All images stored on PACS. All CT scanners at this facility use dose modulation, iterative reconstruction, and/or weight based d osing when appropriate to reduce radiation dose to as low as reasonably achievable (ALARA). [facility]: Dose Right [facility]: CareDose [facility]: Dose Right [facility]: Teradose 4D [facility]: Smart Fieldglass RADIATION DOSE: CT Rad equipment meets quality standard of care and radiation dose reduction techniq ues were employed. CTDIvol: 2.0 mGy. DLP: 91 mGy-cm. LIMITATIONS: None FINDINGS: LUNGS AND PLEURA: There is severe centrilobular emphysema with mild bronchiectasis, mild b ronchial wall thickening, and nonocclusive debris within the right main bronchus. There is no segmen alex mucus plugging or bronchiolectasis. There is also no acute consolidation, ground-glass opacifica tion, pleural effusion, pleural thickening, or greater than 6 mm pulmonary nodule. HILAR AND MEDIASTINAL STRUCTURES: Evaluation is limited due to the absence of intravenous contrast. There is a stable 11 mm right lower paratracheal lymph node. HEART AND VASCULAR STRUCTURES: Atherosclerotic calcification of the thoracic aorta and coronary arter ies. There is no cardiomegaly or pericardial effusion. CORONARY ARTERY CALCIFICATIONS: Severe. UPPER ABDOMEN, THYROID, BONES, OTHER SOFT TISSUES: Chronic compression deformities of the T10 and T12 vertebral bodies, nephrolithiasis, and cholelithiasis. IMPRESSION: Severe emphysema without a superimposed acute cardiopulmonary process. LUNGRADS: LUNGRADS: 1 NEGATIVE. NO NODULES, OR DEFINITELY BENIGN NODULES MODIFIER: NONE RECOMMENDATION: Continue annual screening with LDCT in 12 months. COMMENT: CRITERIA: No lung nodules. Nodules with specific calcifications: Complete, central, popcorn, concentric rings and fat containin g nodules. TECHNICAL DOCUMENTATION: JOB ID: [id number] Quality ID # [id number]: Final reports with documentation of one or more dose reduction techniques (e.g., Au tomated exposure control, adjustment of the mA and/or kV according to patient size, use of iterative reconstruction technique) 2010 [facility] Radiology Reading location - IP/workstation name: [facility]
== END ==
LOC: RAD 09:43
PROVIDERS: ATTEND Clinical Nurse Specialist Adult Health
DX: Z12.2 Encounter for screening for malignant neoplasm of respiratory organs (principal); Z87.891 Personal history of nicotine dependence; J43.2 Centrilobular emphysema; I25.10 Atherosclerotic heart disease of native coronary artery without angina pectoris
CPT/HCPCS: G0297